=== PATIENT | female | born 1990 | race Caucasian/White ===

== ENCOUNTER → 2017-05-03 | Outpatient (CLI) | payer OTHER ==
[~2017-05-03] MED LIST: AMPDEX30CR PO; AZIT250 PO; Abilify2 MG PO; BUSP5 PO; CEPH500 PO; CHOL10002 PO; CLON.5 PO; HYDACE5 PO; IRON325 MG PO; LITH300C PO; MAGCIT300 PO; MEDR10 PO; Mirena1 EACH VG; PRAZ1 PO; PROM25 PO; PROP10 PO; Percocet 10-321 EACH PO; Percocet 5-3251 EACH PO; Prilosec20 MG PO; Pyridium200 MG PO; Ultram50 MG PO; Vicoprofen 2001 EACH PO; YASMINE; Zofran Odt4 MG SL; [UNRECOGNIZED DRUG - REMARK]
[2017-05-04 12:01] LABS: G. vaginalis (DNA Probe) Positive (NEGATIVE); T. vaginalis (DNA Probe) Negative (NEGATIVE)
[2017-05-04 12:02] LABS: Candida species (DNA Probe) Negative (NEGATIVE)
[2017-05-04 14:34] LABS: Source VAG/CERVIX
== END | disposition home or self-care (01) ==
LOC: LAB 16:15
PROVIDERS: Obstetrics & Gynecology
DX: Z01.419 Encounter for gynecological examination (general) (routine) without abnormal findings (principal); Z11.3 Encounter for screening for infections with a predominantly sexual mode of transmission; N76.0 Acute vaginitis
CPT/HCPCS: 87480; 87491; 87510; 87591; 87660; G0123

== ENCOUNTER → 2017-06-13 | Outpatient (CLI) | payer OTHER ==
[2017-06-14 11:39] LABS: Candida species (DNA Probe) Negative (NEGATIVE); G. vaginalis (DNA Probe) Positive (NEGATIVE); T. vaginalis (DNA Probe) Negative (NEGATIVE)
== END ==
LOC: LAB 12:17 → LAB SHORT 12:17
PROVIDERS: Obstetrics & Gynecology
DX: N76.0 Acute vaginitis (principal)
CPT/HCPCS: 87480; 87510; 87660

== ENCOUNTER → 2018-04-27 | Outpatient (CLI) | payer OTHER | LOC: LAB 11:11 → LAB SHORT 11:11 | DX: N39.0 Urinary tract infection, site not specified (principal) | CPT/HCPCS: 87077; 87086; 87186 ==

== ENCOUNTER → 2018-04-28 | Outpatient (CLI) | payer OTHER | END | disposition home or self-care (01) | LOC: LAB EV 13:20 → LAB SHORT 13:20 | DX: N39.0 Urinary tract infection, site not specified (principal) | CPT/HCPCS: 87077; 87086; 87186 ==

== ENCOUNTER → 2018-11-14 | Outpatient (CLI) | payer OTHER ==
[2018-11-16 21:06] LABS: CHLAMYDIA TRACHOMATIS, NAA Negative (Negative); HPV 16 Negative (Negative); HPV 18 Negative (Negative); HPV OTHER HR TYPES Negative (Negative); NEISSERIA GONORRHOEAE, NAA Negative (Negative)
== END | disposition home or self-care (01) ==
LOC: LAB SHORT 11:59 → LAB 11:59
PROVIDERS: Obstetrics & Gynecology
DX: Z01.419 Encounter for gynecological examination (general) (routine) without abnormal findings (principal); Z11.3 Encounter for screening for infections with a predominantly sexual mode of transmission
CPT/HCPCS: 87491; 87591; 87624; G0123

== ENCOUNTER 2019-12-29 22:45 | Inpatient (IN) | payer OTHER ==
[~2019-12-29] VITALS: Ht 160 cm; Wt 72.6 kg
[2019-12-29 23:04] LABS: BASOPHILS ABSOLUTE AUTO 0.07 K/mm3 (0.00-0.23); BASOPHILS PERCENT AUTO 0 % (0-2); EOSINOPHILS ABSOLUTE AUTO 0.38 K/mm3 (0.00-0.68); EOSINOPHILS PERCENT AUTO 2 % (0-6); Hematocrit 36.5 % (33.0-51.0); Hemoglobin 12.4 g/dL (11.5-16.0); IMMATURE GRAN ABSOLUTE AUTO 0.11 K/mm3 (0.00-0.10); IMMATURE GRAN PERCENT AUTO 1 % (0-1); LYMPHOCYTES ABSOLUTE AUTO 2.11 K/mm3 (0.84-5.20); LYMPHOCYTES PERCENT AUTO 11 % (21-46); MONOCYTES ABSOLUTE AUTO 1.25 K/mm3 (0.16-1.47); MONOCYTES PERCENT AUTO 6 % (4-13); Mean Corpuscular HGB 31.5 pg (26.0-34.0); Mean Corpuscular Volume 93 fL (80-100); Mean Platelet Volume 9.6 fL (9.1-12.4); NEUTROPHILS ABSOLUTE AUTO 15.62 K/mm3 (1.96-9.15); NEUTROPHILS PERCENT AUTO 80 % (41-73); Platelet Count 256 K/mm3 (150-400); RDW Coefficient Variation 11.9 % (11.7-14.2); RDW Standard Deviation 40.4 fL (35.1-46.3); Red Blood Cell Count 3.94 M/mm3 (3.80-5.20); White Blood Cell Count 19.54 K/mm3 (4.00-11.30)
[2019-12-29] MEDS ORDERED: CLON.5 PO (23:18)
[2019-12-29] MEDS ORDERED: ADDERALL 10 MG10 MG PO (23:18)
[2019-12-29 23:19] LABS: International Normalized Ratio 1.02; Prothrombin Time Results 10.9 Sec (9.7-11.5)
[2019-12-29 23:21] LABS: Alanine Aminotransfer (ALT/SGP 23 U/L (12-78); Albumin, Blood 3.5 g/dL (3.4-5.0); Alk Phos 73 U/L (50-136); Anion Gap 7 mmol/L (6-16); Aspartate Aminotrans (AST/SGOT 31 U/L (12-37); Beta HCG, Quantitative, Serum <1 mIU/mL (0-3); Bilirubin, Total 0.2 mg/dL (0.1-1.0); Blood Urea Nitrogen 12 mg/dL (8-24); Bun/Creatinine Ratio 13.7 (12.0-20.0); CO2, Blood 28 mmol/L (21-32); Calcium, Blood 8.6 mg/dL (8.5-10.1); Chloride, Blood 111 mmol/L (98-108); Creatinine, Blood 0.87 mg/dL (0.40-1.00); Ethanol (Alcohol), Blood, Med <3 mg/dL; Globulin, Blood 3.6 g/dL (2.2-4.0); Glomerular Filtration Rate >60 (60-); Glucose, Blood 51 mg/dL (70-99); Potassium, Blood 3.1 mmol/L (3.5-5.5); Sodium, Blood 146 mmol/L (136-145); Total Protein, Blood 7.1 g/dL (6.4-8.2)
[2019-12-30] MEDS ORDERED: ALBU90OI INH (02:41)
[2019-12-30] MEDS ORDERED: AMPDEX5 PO (02:44)
[2019-12-30] MEDS ORDERED: AMPDEX10 PO (02:45)
[2019-12-30] MEDS ORDERED: ALLEGRA ALLERG180 MG PO (02:48)
--- NOTE | 2019-12-30 04:13 | NUR ---
PT TO ROOM 209 AT 0200. A/O X4. ORIENTED TO ROOM AND CALL LIGHT. DISCOMFORT WHEN MOVING IN R LEG, BACK, AND RIBS. MEDICATING PER ORDERS.
--- NOTE | 2019-12-30 05:51 | NUR ---
SHIFT SUMMARY PT A/O X4. SBA UP IN ROOM USING WALKER. C/O PAIN IN LOWER BACK, R KNEE/LEG, AND RIBS. MEDICATING PER ORDERS WITH DILAUDED. HEATING PAD PROVIDED FOR LOWER BACK; PT REPORTS THIS IS HELPING WITH PAIN. LEGS ELEVATED ON PILLOWS. PT TOLERATING PO INTAKE, REP NAUSEA ONLY WITH PAIN MEDICATION. NO SIGNS OF NEURO DEFICITS. ABRASIONS CLEANED. RESTING AT THIS TIME WITH CALL LIGHT IN REACH.
[2019-12-30 07:46] LABS: U Amphetamine Screen DETECTED; U Benzodiazapine Screen DETECTED; U Cannabinoids Screen DETECTED; U Opiates Screen DETECTED
[2019-12-30 07:47] LABS: U Barbituate Screen Not Detected; U Buprenorphine Screen Not Detected; U Cocaine Screen Not Detected; U Methadone Screen Not Detected; U Methamphetamine Screen Not Detected; U Oxycodone Screen Not Detected; U Phencyclidine Screen Not Detected; U Propoxyphene Screen Not Detected
[2019-12-30 08:13] LABS: Hematocrit 34.7 % (33.0-51.0); Hemoglobin 11.8 g/dL (11.5-16.0); Mean Corpuscular HGB 31.3 pg (26.0-34.0); Mean Corpuscular Volume 92 fL (80-100); Mean Platelet Volume 9.4 fL (9.1-12.4); Platelet Count 244 K/mm3 (150-400); RDW Standard Deviation 40.6 fL (35.1-46.3); Red Blood Cell Count 3.77 M/mm3 (3.80-5.20); White Blood Cell Count 11.69 K/mm3 (4.00-11.30)
[2019-12-30 08:28] LABS: Anion Gap 5 mmol/L (6-16); Blood Urea Nitrogen 12 mg/dL (8-24); Bun/Creatinine Ratio 18.8 (12.0-20.0); CO2, Blood 28 mmol/L (21-32); Calcium, Blood 8.6 mg/dL (8.5-10.1); Chloride, Blood 105 mmol/L (98-108); Creatinine, Blood 0.64 mg/dL (0.40-1.00); Glomerular Filtration Rate >60 (60-); Glucose, Blood 91 mg/dL (70-99); Potassium, Blood 3.6 mmol/L (3.5-5.5); Sodium, Blood 138 mmol/L (136-145)
--- NOTE | 2019-12-30 08:45 | NUR ---
DROWSY, BUT AWAKENS EASILY, REPORTS HAVING SOME NAUSEA, R LEG APPEARS SWOLLEN FROM THE KNEE UP, ICE PACK APPLIED, PT REPORTS SWELLING IS WORSE, MOVES TOES ON R AND L FOOT WELL, REPORTS HAVING SOME NUMBNESS ON 2ND-5TH TOES AND ON PLANTAR SIDE OF FOOT, REPORTS PAIN IS TOLERABLE AT THIS TIME, DENIES ANY NEED FOR PAIN MEDS, DENIES ANY SOB, MEDICATED FOR NAUSEA, PT TRYING TO EAT BREAKFAST, CONT. TO MONITOR FOR ANY CHANGES.
--- NOTE | 2019-12-30 12:08 | NUR ---
PT REFUSING IBUPROFEN, REPORTS "NON-STOP GAGGING AND THROWING UP" WHEN SHE TAKES IT. PT MEDICATED WITH TYLENOL.
--- NOTE | 2019-12-30 17:10 | NUR ---
SUMMARY OOB WITH PT/OT TODAY, PAIN IS TOLERABLE WITH PO PAIN MEDS, AMBULATING WITH A WALKER TO THE BATHROOM WITH STANDBY ASSIST, MRI TODAY FOR RLE SWELLING AND R FOOT NUMBNESS, DENIES ANY SOB, TOLERATING PO FAIRLY WELL, ICE TO RLE, VSS, NO ACUTE CHANGES THIS SHIFT.
--- NOTE | 2019-12-31 05:31 | NUR ---
SHIFT SUMMARY PT A0X4. NO ACUTE CHANGES DURING MY SHIFT. VSS. PT SLEPT WELL LAST NIGHT. PAIN WAS TOLERABLE 6-8/10 LEVEL. MEDICATED W/ PO PAIN MEDS. PT STILL PRESENTED R PLANTAR NUMBNESS AND TINGLING ON RLE TO R PLANTAR. TOLERATED WALKING WITH FWW, SBA. PT TOLERATING REG DIET WELL DENIES NAUSEA AND VOMITING. PT REPORTS PASSING FLATUS BUT DENIES BM. SALINE LOCKED, IV ON RIGHT AC. PT REPORTS MILD INCREASE IN SOFT SWELLING ON RLE SINCE YESTERDAY MORNING. PT DENIES DIZZINESS.
--- NOTE | 2019-12-31 18:40 | NUR ---
SUMMARY: NO ACUTE CHANGE. VSS, PT A/O. PT ABLE TO WORK WITH PT/OT. FITTED FOR BACK BRACE, TO GO HOME WITH, PT CURRENTLY USING WHEN SITTING UP FOR MEALS AND WHILE WALKING. REPORTS THAT BRACE IS TO PAINFUL TO HAVE ON WHILE LAYING IN BED. DAY WENT ON PT REPORTED PAIN HARDER TO MANAGE WITH ALL THE ACTIVITY. DR. ANDERSON MADE AWARE, SEE NEW ORDER. PT ALSO REPORTED UNABLE TO HAVE BM, GIVEN MILK OF MAG. PT MOVES ABOUT ROOM WITHOUT MUCH TROUBLE. NO ACUTE SAFETY CONCERNS, WILL MONITOR AND REPORT TO AUDRA RALPH.
--- NOTE | 2020-01-01 04:02 | NUR ---
SHIFT SUMMARY PT A/O X4. PT WAS ANXIOUS AT THE BEGINNING OF THE SHIFT, INSIST TO GO HOME. SHE ALSO REPORTS PAIN. PROVIDE PT EDUC AND MEDICATED PT FOR PAIN. PT ALSO WENT TO SHOWER. SHE FELT RELIEF AND ANXIETY RESOLVED. PT REPORTS NO BM FOR SINCE ADMISSION. PT REPORTS PASSING FLATUS. ABD IS MILD FIRM. BOWEL CARE GIVEN, SEE EMR FOR MD ORDER. PT IS WELL CONTROLLED THROUGHOUT THE NIGHT. AMBULATION AND RANGE OF MOTION HAS IMPROVED. PT USED BACK BRACE WHEN WALKING/SITTING, HELPS W/PAIN. SCATTERED BRUISING NOTED. ANTICIPATE DC CHINO IF CLEARED BY THERAPIST.
--- NOTE | 2020-01-01 07:20 | NUR ---
pt awake stated pain is 7/10 worse on her ribs and back and r leg pt reports numbess to r foot and ant r leg vs post but stated rom is improved wearing a brace when oob
[2020-01-01] MEDS ORDERED: CYCL10 PO (07:22)
[2020-01-01] MEDS ORDERED: OXAYDO5 M1 PO (07:22)
[2020-01-01] MEDS ORDERED: GABA100 PO (07:23)
[2020-01-01] MEDS ORDERED: ACET500 PO (09:38)
[2020-01-01] MEDS ORDERED: LIDO700A20 TOP (09:41)
[2020-01-01] MEDS ORDERED: Naloxone H0.4 MG/11 INJ (09:42)
[2020-01-01] MEDS ORDERED: MIRALAX17 GM PO (09:43)
--- NOTE | 2020-01-01 10:30 | NUR ---
dulcolax supp given passing flatus no bm earlier dr carter by to see pt
--- NOTE | 2020-01-01 12:13 | NUR ---
pt working with ot just had lg bm
--- NOTE | 2020-01-01 13:58 | NUR ---
rx called to [facility]
--- NOTE | 2020-01-01 14:45 | NUR ---
wc escort to car no acute changes
== END 2020-01-01 14:50 | disposition home or self-care (01) | DRG 552 ==
LOC: ER 22:45 → SURS 22:46
PROVIDERS: Emergency Medicine; ADMIT Surgery
DX: S32.019A Unspecified fracture of first lumbar vertebra, initial encounter for closed fracture (principal); S22.31XA Fracture of one rib, right side, initial encounter for closed fracture; S32.029A Unspecified fracture of second lumbar vertebra, initial encounter for closed fracture; S32.039A Unspecified fracture of third lumbar vertebra, initial encounter for closed fracture; S32.049A Unspecified fracture of fourth lumbar vertebra, initial encounter for closed fracture; S32.059A Unspecified fracture of fifth lumbar vertebra, initial encounter for closed fracture; S70.11XA Contusion of right thigh, initial encounter; S80.01XA Contusion of right knee, initial encounter; S09.90XA Unspecified injury of head, initial encounter; V89.2XXA Person injured in unspecified motor-vehicle accident, traffic, initial encounter; K52.9 Noninfective gastroenteritis and colitis, unspecified; R40.2412 Glasgow coma scale score 13-15, at arrival to emergency department; F41.9 Anxiety disorder, unspecified; F90.9 Attention-deficit hyperactivity disorder, unspecified type; J45.909 Unspecified asthma, uncomplicated; Z87.891 Personal history of nicotine dependence
CPT/HCPCS: 36415; 70450; 71260; 72125; 72148; 73562-RT; 74177; 80048; 80053; 83690; 84702; 85025; 85027; 85610; 93005; 93010; 94640; 94760; 96374-59; 96375; 96376; 97110; 97116; 97162; 97165; 97535; 99285-25; A9270; G0378; G0480; J1170; J2405; J3010; Q9967

== ENCOUNTER 2020-05-15 14:34 | Emergency (ER) | payer OTHER ==
[~2020-05-15] VITALS: Ht 160 cm; Wt 76.2 kg
[~2020-05-15 14:34] MED LIST changes: +ACET500 PO; +ADDERALL 10 MG10 MG PO; +ALBU90OI INH; +ALLEGRA ALLERG180 MG PO; +AMPDEX10 PO; +AMPDEX5 PO; +CYCL10 PO; +GABA100 PO; +LIDO700A20 TOP; +MIRALAX17 GM PO; +Naloxone H0.4 MG/11 INJ; +OXAYDO5 M1 PO
[2020-05-15] MEDS ORDERED: Percocet 5-3251 EACH PO (18:18)
== END 2020-05-15 18:26 | disposition home or self-care (01) ==
LOC: ER 14:34
DX: S70.11XA Contusion of right thigh, initial encounter (principal); Z88.5 Allergy status to narcotic agent; Z79.899 Other long term (current) drug therapy
CPT/HCPCS: 93971; 99284-25

== ENCOUNTER → 2020-06-03 | Outpatient (CLI) | payer OTHER | END | disposition home or self-care (01) | LOC: LAB SHORT 04:30 | DX: R35.0 Frequency of micturition (principal) | CPT/HCPCS: 87086 ==

== ENCOUNTER → 2020-10-22 | Outpatient (CLI) | payer OTHER | END | disposition home or self-care (01) | LOC: LAB SHORT 09:03 | DX: N39.3 Stress incontinence (female) (male) (principal) | CPT/HCPCS: 87077; 87086; 87186 ==

== ENCOUNTER → 2020-10-30 | Outpatient (CLI) | payer OTHER | END | disposition home or self-care (01) | LOC: LAB SHORT 16:07 | DX: R10.2 Pelvic and perineal pain (principal) | CPT/HCPCS: 87086 ==

== ENCOUNTER 2021-01-11 08:27 | Day surgery (SDC) | payer OTHER ==
[~2021-01-11] VITALS: Ht 157.5 cm; Wt 74.0 kg
[~2021-01-11 08:27] MED LIST changes: +CYCLOBENZAPRINE5 MG PO; +OMEP20ER PO
[2021-01-11] MEDS ORDERED: MUPIROCIN15 GM TP (08:52)
--- NOTE | 2021-01-11 11:03 | NUR ---
PT C/O OF NAUSEA. VERBAL ORDER FROM DR. OROZCO FOR ZOFRAN 4MG IV.
--- NOTE | 2021-01-11 11:13 | NUR ---
Discharge instructions reviewed with patient. Patient verbalizes understanding. Copy given to patient to take home. Patient States Post-Procedure ride home has been arranged. PT REPORTS NAUSEA IMPROVED AND READY TO GO HOME. Discharged via wheelchair to private car for ride home.
--- NOTE | 2021-01-11 12:24 | NUR ---
01/11/21 1224 Marv Coates History, Chart, Medications and Allergies reviewed before start of procedure. Patient confirms NPO status and agrees with scheduled surgery. 3-LEAD EKG REVIEWED WITH PHYSICIAN PRIOR TO START OF PROCEDURE. MONITOR INTACT WITH CONTINUOUS PULSE OXIMETRY AND INTERMITTENT BP. PATIENT DETERMINED TO BE ASA APPROPRIATE FOR PROPOFOL SEDATION PRIOR TO START OF PROCEDURE BY DR. OROZCO. Bite Block Placed, WILL REMOVE AFTER PROCEDURE. HURRICAINE SPRAY TO OROPHARYX.
== END 2021-01-11 11:13 | disposition home or self-care (01) ==
LOC: ORSCMMR 08:27 → ORD 08:30 → ORSCMMR 08:30
PROVIDERS: Internal Medicine Gastroenterology
PROC: 0DBB8ZX Excision of Ileum, Via Natural or Artificial Opening Endoscopic, Diagnostic (ICD-10-PCS; principal; 2021-01-11 08:30)
PROC: 0DB78ZX Excision of Stomach, Pylorus, Via Natural or Artificial Opening Endoscopic, Diagnostic (ICD-10-PCS; principal; 2021-01-11 08:30)
PROC: 0DB98ZX Excision of Duodenum, Via Natural or Artificial Opening Endoscopic, Diagnostic (ICD-10-PCS; principal; 2021-01-11 08:30)
PROC: 0DBE8ZX Excision of Large Intestine, Via Natural or Artificial Opening Endoscopic, Diagnostic (ICD-10-PCS; principal; 2021-01-11 08:30)
DX: K62.5 Hemorrhage of anus and rectum (principal); K21.9 Gastro-esophageal reflux disease without esophagitis; R19.7 Diarrhea, unspecified; K20.0 Eosinophilic esophagitis; K64.8 Other hemorrhoids; Z79.899 Other long term (current) drug therapy
CPT/HCPCS: 88305; 88342; A9270; J2250; J2405; J2704; J7120

== ENCOUNTER → 2022-02-28 | Outpatient (CLI) | payer OTHER ==
[~2022-02-28] MED LIST changes: +MUPIROCIN15 GM TP
== END | disposition home or self-care (01) ==
LOC: LAB SHORT 16:30
DX: N39.0 Urinary tract infection, site not specified (principal)
CPT/HCPCS: 87086

== ENCOUNTER → 2022-08-01 | Outpatient (CLI) | payer OTHER ==
[2022-08-02 17:35] LABS: Influenza A, PCR NEGATIVE (NEGATIVE); Influenza B, PCR NEGATIVE (NEGATIVE); Resp Syncytial Virus, PCR NEGATIVE (NEGATIVE); SARS-Cov-2 (COVID-19) PCR, MMC NEGATIVE (NEGATIVE)
== END ==
LOC: LAB SHORT 16:30 → LAB 16:30
PROVIDERS: Family Medicine
DX: R05.9 Cough, unspecified (principal); R50.9 Fever, unspecified
CPT/HCPCS: 0241U

== ENCOUNTER → 2023-01-16 | Outpatient (CLI) | payer OTHER | LOC: LAB SHORT 15:43 | DX: R82.90 Unspecified abnormal findings in urine (principal) | CPT/HCPCS: 87086 ==

== ENCOUNTER 2024-09-26 06:13 | Day surgery (SDC) | payer OTHER ==
[2024-09-26] VITALS (9 sets, daily range): BP systolic 93–104; BP diastolic 52–76
[~2024-09-26] VITALS: Ht 160 cm; Wt 75.0 kg
[~2024-09-26 06:13] MED LIST changes: +ALLEGRA ALLERGY60 MG PO; +BUPRENORPHINE HC2 MG SL; +DULO30 PO; +EPIPEN0.3 MG/0.3 IM; -GABA100 PO; +GABA300 PO; +INTUNIV1 MG PO; +IPRAT-ALBUT 0.5-3 ML NEB; +PANT20 PO; +TIZA4 PO
[2024-09-26] MEDS ORDERED: Serevent Disku50 MCG INH (06:34)
[2024-09-26] MEDS ORDERED: Metoclopramide HCl 5MG / ML 2ML Vial IV ONE ×2 (06:35→07:25)
[2024-09-26] MEDS ORDERED: CeFAZolin Sodium 2,000 MG in NS 100 ML IV SCH (06:45)
[2024-09-26] MEDS ORDERED: Bupivacaine 0.5% HCl 5 MG/ML 30MLVIAL ONE (07:04)
[2024-09-26] MEDS ORDERED: CeFAZolin Sodium 2,000 MG VIAL ONE (07:04)
[2024-09-26] MEDS ORDERED: Lidocaine 1%-Epineph 1:200000 30 ML SDV ONE (07:04)
--- NOTE | 2024-09-26 07:13 | NUR ---
History, Chart, Medications and Allergies reviewed before start of procedure. Patient confirms NPO status and agrees with scheduled surgery. Anesthesia provider notified of patient drinking "couple sips" of coffee with cream this AM at 0445. Updated medication list with last doses provided also.
[2024-09-26] MEDS ORDERED: FentaNYL Citrate 50 MCG/ML 2 ML Injection ONE (07:21)
[2024-09-26] MEDS ORDERED: Midazolam HCL 1 MG/ML 5MLVIAL ONE (07:25)
[2024-09-26] MEDS ORDERED: Midazolam HCl 1MG / ML 2ML Vial IV ONE ×2 (07:25→08:00)
[2024-09-26] MEDS ORDERED: FentaNYL Citrate 50 MCG/ML 2 ML Injection IV PRN ×2 (07:25)
[2024-09-26] MEDS ORDERED: HYDROmorphone HCl/Pf 1MG SYR IV PRN (07:30)
[2024-09-26] MEDS ORDERED: Albuterol 2.5 MG/3 ML VIAL INH PRN (07:30)
[2024-09-26] MEDS ORDERED: Glycopyrrolate 0.2 MG/ML 5ML VIAL ONE (07:42)
[2024-09-26] MEDS ORDERED: Phenylephrine HCl 100 MCG/ML-NS 10MLSYR (1MG/10ML) ONE (08:07)
[2024-09-26] MEDS ORDERED: Ondansetron HCl 2 MG / ML 2ML Vial ONE (08:07)
[2024-09-26] MEDS ORDERED: Rocuronium Bromide 10 MG/ML 5ML Injection IV ONE (08:07)
[2024-09-26] MEDS ORDERED: Ketorolac Tromethamine 30mg Vial ONE (08:08)
[2024-09-26] MEDS ORDERED: Sugammadex Sodium 200 MG/2ML SDV (100 MG/ML) ONE (08:08)
[2024-09-26] MEDS ORDERED: HYDROcodone 5-APAP 325 TAB PO PRN (08:55)
--- NOTE | 2024-09-26 09:49 | NUR ---
Discharge instructions reviewed with patient. Patient verbalizes understanding. Copy given to patient to take home. 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 Dressing c/d/i. Diaz drain with minimal sangenous output. Extra op-site dressings and drain log given to pt. Patient States Post-Procedure ride home has been arranged. Discharged via wheelchair to private car for ride home.
== END 2024-09-26 09:52 | disposition home or self-care (01) ==
LOC: ORSCMMR 06:13 → ORD 07:30 → ORSCMMR 09:52
PROVIDERS: Surgery
PROC: 0JB60ZX Excision of Chest Subcutaneous Tissue and Fascia, Open Approach, Diagnostic (ICD-10-PCS; principal; 2024-09-26 07:30)
DX: D17.1 Benign lipomatous neoplasm of skin and subcutaneous tissue of trunk (principal); J44.89 Other specified chronic obstructive pulmonary disease; F17.210 Nicotine dependence, cigarettes, uncomplicated; Z79.899 Other long term (current) drug therapy
CPT/HCPCS: 88304; A9270; J0690; J1885; J2250; J2371; J2405; J2704; J2765; J3010; J7120